=== PATIENT | female | born 1975 | race African-American/Black ===

== ENCOUNTER 2016-10-03 17:06 | Emergency (ER) | payer OTHER ==
[2016-10-03 15:44] LABS: ALCOHOL 56 MG/DL (0); SALICYLATE 3.6 MG/DL (-)
[2016-10-03 15:45] LABS: ACETAMINOPHEN LEVEL (TYLENOL) < 2.0 MCG/ML (10.0-20.0)
[2016-10-03 15:47] LABS: AMPHETAMINES (NOT ORD) NEG (NEG); BARBITURATES (NOT ORDERED NEG (NEG); BENZODIAZEPINES (NOT ORD) NEG (NEG); CANNABINOIDS (THC) NEG (NEG); COCAINE (NOT ORDERED) NEG (NEG); OPIATES NEG (NEG); PHENCYCLIDINE(PCP) NEG (NEG); TRICYCLICS NEG (NEG)
[2016-10-05] MEDS ORDERED: *DENIES (13:55)
== END 2016-10-06 01:45 ==
LOC: ER 17:06
PROVIDERS: Emergency Medicine
DX: F29 Unspecified psychosis not due to a substance or known physiological condition (principal); R45.850 Homicidal ideations; F17.200 Nicotine dependence, unspecified, uncomplicated
CPT/HCPCS: 80305; 80307; 93005; 99284; A9270-GY